=== PATIENT | male | born 1950 | race Caucasian/White ===

== ENCOUNTER 2017-05-23 13:49 | Emergency (ER) | payer BC ==
[2017-05-23] MEDS ORDERED: Lidocaine 1% 20 ML MDV INJECT ONE (14:25)
[2017-05-23] MEDS ORDERED: Diphtheria,Pertussis(Acell),Tetanus Vaccine 0.5 ML Syringe IM ONE (14:29)
--- NOTE | 2017-05-23 14:29 | EDM.PDOC ---
ED HPI GENERAL MEDICAL PROBLEM - General Chief Complaint: Skin Complaint Stated Complaint: HOOK STUCK IN FINGER ON LT HAND Time Seen by Provider: 05/23/17 13:53 - History of Present Illness INITIAL COMMENTS - FREE TEXT/NARRATIVE: HISTORY AND PHYSICAL: History of present illness: This is a 66-year-old male presenting to the emergency department after. [place] stuck in his left hand second digit. Patient tells me that happened approximately 1 hour prior to arrival to the EMS. He currently complains of mild throbbing pain. He has no other complaints. His last tetanus was over 10 years ago. Review of systems: As per history of present illness and below otherwise all systems reviewed and negative. Past medical history: As per history of present illness and as reviewed below otherwise noncontributory. Surgical history: As per history of present illness and as reviewed below otherwise noncontributory. Social history: No reported history of drug or alcohol abuse. Family history: As per history of present illness and as reviewed below otherwise noncontributory. Physical exam: HEENT: Atraumatic, normocephalic, pupils reactive, negative for conjunctival pallor or scleral icterus, mucous membranes moist, throat clear, neck supple, nontender, trachea midline. Lungs: Clear to auscultation, breath sounds equal bilaterally, chest nontender. Heart: S1S2, regular, negative for clicks, rubs, or JVD. Abdomen: Soft, nondistended, nontender. Negative for masses or hepatosplenomegaly. Negative for costovertebral tenderness. Pelvis: Stable nontender. Genitourinary: Deferred. Rectal: Deferred. Extremities: [place] stuck in the distal end of the second digit on the left hand. No excessive bleeding erythema or induration. Neuro: Awake, alert, oriented. Cranial nerves II through XII unremarkable. Cerebellum unremarkable. Motor and sensory unremarkable throughout. Exam nonfocal. Diagnostics: None Therapeutics: Progress note: Local anesthesia with lidocaine was placed into the second digit of the first hand distally. The fishhook was then manually removed. Intramuscular Adacel for tetanus update Impression: [place] in left hand second digit Plan: [place] was removed see procedure note. Tetanus is updated. Patient tolerated the procedure without any comp patients. Patient is advised to follow-up with primary care provider. - Related Data Allergies Allergy/AdvReac Type Severity Reaction Status Date / Time No Known Allergies Allergy Verified 05/23/17 14:28 ED ROS GENERAL - Review of Systems Review Of Systems: See Below (See dictation) ED EXAM, SKIN/RASH Exam: See Below (See dictation) Course - Vital Signs Text/Narrative:: See history of present illness procedure note for facial removal procedure. Patient tolerated the procedure well. Patient discharged home after fishhook was removed. Last Recorded V/S: Last Vital Signs Temp 36.3 C 05/23/17 14:28 Pulse 75 05/23/17 14:28 Resp 18 05/23/17 14:28 BP 139/75 05/23/17 14:28 Pulse Ox 97 05/23/17 14:28 - Orders/Labs/Meds Orders: Active Orders 24 hr Category Date Time Status Vaccines to be Administered [RC] PER UNIT ROUTINE Care 05/23/17 14:29 Active Meds: Medications Discontinued Medications Generic Name Dose Route Start Last Admin Trade Name Freq PRN Reason Stop Dose Admin Diphtheria/Tetanus/Acell Pertussis 0.5 ml 05/23/17 14:29 Adacel IM 05/23/17 14:30 .ONCE ONE Lidocaine HCl 20 ml 05/23/17 14:25 Xylocaine 1% INJECT 05/23/17 14:26 ONETIME ONE Departure - Departure Time of Disposition: 14:38 Disposition: Home, Self-Care 01 Condition: Good Clinical Impression: Fish hook injury of finger - Discharge Information Forms: ED Department Discharge Additional Instructions: The following information is given to patients seen in the emergency department who are being discharged to home. This information is to outline your options for follow-up care. We provide all patients seen in our emergency department with a follow-up referral. The need for follow-up, as well as the timing and circumstances, are variable depending upon the specifics of your emergency department visit. If you don't have a primary care physician on staff, we will provide you with a referral. We always advise you to contact your personal physician following an emergency department visit to inform them of the circumstance of the visit and for follow-up with them and/or the need for any referrals to a consulting specialist. The emergency department will also refer you to a specialist when appropriate. This referral assures that you have the opportunity for follow-up care with a specialist. All of these measure are taken in an effort to provide you with optimal care, which includes your follow-up. Under all circumstances we always encourage you to contact your private physician who remains a resource for coordinating your care. When calling for follow-up care, please make the office aware that this follow-up is from your recent emergency room visit. If for any reason you are refused follow-up, please contact the [facility] Emergency Department at and asked to speak to the emergency department charge nurse. - My Orders Last 24 Hours: My Active Orders 05/23/17 14:29 Vaccines to be Administered [RC] PER UNIT ROUTINE - Assessment/Plan Last 24 Hours: My Active Orders 05/23/17 14:29 Vaccines to be Administered [RC] PER UNIT ROUTINE
== END 2017-05-23 14:50 | disposition home or self-care (01) ==
LOC: MW.ED 13:49
DX: S60.451A Superficial foreign body of left index finger, initial encounter (principal); Z23 Encounter for immunization; W45.8XXA Other foreign body or object entering through skin, initial encounter
CPT/HCPCS: 90471; 90715; 99283; 99283-25